=== PATIENT | male | born 1990 | race Caucasian/White ===

== ENCOUNTER 2016-11-25 11:21 | Emergency (ER) | payer BC, OTHER ==
[2016-11-25] MEDS ORDERED: Lidocaine 2% Viscous Solution 15 ML Cup PO ONE (11:43)
[2016-11-25] MEDS ORDERED: Benzocaine 20% Topical Spray UD MUCMEM ONE (11:43)
[2016-11-25] MEDS ORDERED: Amoxicillin 500 MG Cap PO SCH (11:45)
--- NOTE | 2016-11-25 11:48 | EDM.PDOC ---
ED HPI GENERAL MEDICAL PROBLEM - General Chief Complaint: General Stated Complaint: ABSCESS TOOTH Time Seen by Provider: 11/25/16 11:40 Source of Information: Reports: Patient History Limitations: Reports: No limitations - History of Present Illness INITIAL COMMENTS - FREE TEXT/NARRATIVE: History of present illness: [26-year-old male presents with acute onset left-sided jaw pain. Patient has multiple fillings, and some appearance of fractured tooth back in the 18 through 21 area patient does have some swelling and point tenderness to left lower jaw.] Review of systems: As per history of present illness and below otherwise all systems reviewed and negative. Past medical history: As per history of present illness and as reviewed below otherwise noncontributory. Surgical history: As per history of present illness and as reviewed below otherwise noncontributory. Social history: No reported history of drug or alcohol abuse. Family history: As per history of present illness and as reviewed below otherwise noncontributory. Physical exam: HEENT: Atraumatic, normocephalic, pupils reactive, negative for conjunctival pallor or scleral icterus, mucous membranes moist, throat clear, neck supple, nontender, trachea midline. Lungs: Clear to auscultation, breath sounds equal bilaterally, chest nontender. Heart: S1S2, regular, negative for clicks, rubs, or JVD. Abdomen: Soft, nondistended, nontender. Negative for masses or hepatosplenomegaly. Negative for costovertebral tenderness. Pelvis: Stable nontender. Genitourinary: Deferred. Rectal: Deferred. Extremities: Atraumatic, negative for cords or calf pain. Neurovascular unremarkable. Neuro: Awake, alert, oriented. Cranial nerves II through XII unremarkable. Cerebellum unremarkable. Motor and sensory unremarkable throughout. Exam nonfocal. Diagnostics: [] Therapeutics: [] Impression: [Dental caries, fractured teeth,] Plan: [Dental bolster, amoxicillin, referred of T3, followup with dentist] Definitive disposition and diagnosis as appropriate pending reevaluation and review of above. left lower Pain Score (Numeric/FACES): 8 - Related Data Allergies Allergy/AdvReac Type Severity Reaction Status Date / Time ibuprofen Allergy Wheezing Verified 11/25/16 11:35 Home Meds: Home Meds Amoxicillin [Amoxil] 875 mg PO Q12HR #14 tablet 11/25/16 [Rx] Past Medical History HEENT History: Reports: None Cardiovascular History: Reports: None Respiratory History: Reports: Asthma Gastrointestinal History: Reports: None Genitourinary History: Reports: None Musculoskeletal History: Reports: Fracture Other Musculoskeletal History: hx of fx right clavicle, right ankle, right middle finger Neurological History: Reports: None Psychiatric History: Reports: None Endocrine/Metabolic History: Reports: None Hematologic History: Reports: None Immunologic History: Reports: None Oncologic (Cancer) History: Reports: None Dermatologic History: Reports: None - Past Surgical History Head Surgeries/Procedures: Reports: None HEENT Surgical History: Reports: Other (see below) Other HEENT Surgeries/Procedures: polyps removed from nose Cardiovascular Surgical History: Reports: None Respiratory Surgical History: Reports: None GI Surgical History: Reports: None Male Surgical History: Reports: None Endocrine Surgical History: Reports: None Neurological Surgical History: Reports: None Musculoskeletal Surgical History: Reports: None Oncologic Surgical History: Reports: None Dermatological Surgical History: Reports: None Social & Family History - Family History Family Medical History: Noncontributory - Tobacco Use Smoking Status *Q: Never Smoker - Recreational Drug Use Recreational Drug Use: No ED ROS GENERAL - Review of Systems Review Of Systems: See Below (The history of present illness) ED EXAM, GENERAL - Physical Exam Exam: See Below (See history of present illness) Course - Vital Signs Last Recorded V/S: Last Vital Signs Temp 36.7 C 11/25/16 11:36 Pulse 67 11/25/16 11:36 Resp 18 11/25/16 11:36 BP 157/93 H 11/25/16 11:36 Pulse Ox 98 11/25/16 11:36 - Orders/Labs/Meds Orders: Active Orders 24 hr Category Date Time Status Amoxicillin [Amoxil] Med 11/25/16 11:45 Stop Req 1,000 mg PO Q8H Medication Orders Amoxicillin (Amoxil) 1,000 mg PO Q8H JESSICA Meds: Medications Generic Name Dose Route Start Last Admin Trade Name Freq PRN Reason Stop Dose Admin Amoxicillin 1,000 mg 11/25/16 11:45 Amoxil PO Q8H JESSICA Discontinued Medications Generic Name Dose Route Start Last Admin Trade Name Freq PRN Reason Stop Dose Admin Benzocaine 2 each 11/25/16 11:43 Hurricaine One 20% MUCMEM 11/25/16 11:44 ONETIME ONE Lidocaine HCl 15 ml 11/25/16 11:43 Xylocaine 2% Viscous PO 11/25/16 11:44 ONETIME ONE Departure - Departure Time of Disposition: 11:47 Disposition: Home, Self-Care 01 Condition: good Clinical Impression: Dental caries into pulp Fractured tooth Qualifiers: Encounter type: initial encounter Fracture type: closed Qualified Code(s): S02.5XXA - Fracture of tooth (traumatic), initial encounter for closed fracture Prescriptions: Amoxicillin [Amoxil] 875 mg PO Q12HR #14 tablet Forms: ED Department Discharge Additional Instructions: The following information is given to patients seen in the emergency department who are being discharged to home. This information is to outline your options for follow-up care. We provide all patients seen in our emergency department with a follow-up referral. The need for follow-up, as well as the timing and circumstances, are variable depending upon the specifics of your emergency department visit. If you don't have a primary care physician on staff, we will provide you with a referral. We always advise you to contact your personal physician following an emergency department visit to inform them of the circumstance of the visit and for follow-up with them and/or the need for any referrals to a consulting specialist. The emergency department will also refer you to a specialist when appropriate. This referral assures that you have the opportunity for follow-up care with a specialist. All of these measure are taken in an effort to provide you with optimal care, which includes your follow-up. Under all circumstances we always encourage you to contact your private physician who remains a resource for coordinating your care. When calling for follow-up care, please make the office aware that this follow-up is from your recent emergency room visit. If for any reason you are refused follow-up, please contact the [facility] Emergency Department at and asked to speak to the emergency department charge nurse. Followup with dentist as discussed Take medication as discussed and prescribed Return to ER as needed as discussed - My Orders Last 24 Hours: My Active Orders 11/25/16 11:45 Amoxicillin [Amoxil] 1,000 mg PO Q8H - Assessment/Plan Last 24 Hours: My Active Orders 11/25/16 11:45 Amoxicillin [Amoxil] 1,000 mg PO Q8H
[2016-11-25 12:40] VITALS: BP 160/101
== END 2016-11-25 12:37 | disposition home or self-care (01) ==
LOC: MW.ED 11:21
DX: S02.5XXA Fracture of tooth (traumatic), initial encounter for closed fracture (principal); K02.9 Dental caries, unspecified; Z98.890 Other specified postprocedural states; Z88.6 Allergy status to analgesic agent; X58.XXXA Exposure to other specified factors, initial encounter
CPT/HCPCS: 99282; A9270; 99283

== ENCOUNTER 2016-11-27 07:29 | Emergency (ER) | payer BC ==
[2016-11-27 07:47] VITALS: BP 132/95
--- NOTE | 2016-11-27 07:49 | EDM.PDOC ---
ED HPI ENT - General Chief Complaint: ENT Problem Stated Complaint: JAW PROBLEM Time Seen by Provider: 11/27/16 07:37 Source of Information: Reports: Patient History Limitations: Reports: No limitations - History of Present Illness INITIAL COMMENTS - FREE TEXT/NARRATIVE: HISTORY AND PHYSICAL: History of present illness: [18-year-old male now presents to the emergency department complaining of left jaw toothache patient was recently seen this toothache and put on amoxicillin. He is concerned about a swollen gum swelling. No drainage no fevers chills sweats or shaking chills. No headache or stiff neck. Local pain at the tooth site otherwise patient feels well]. Review of systems: As per history of present illness and below otherwise all systems reviewed and negative. Past medical history: As per history of present illness and as reviewed below otherwise noncontributory. Surgical history: As per history of present illness and as reviewed below otherwise noncontributory. Social history: No reported history of drug or alcohol abuse. Family history: As per history of present illness and as reviewed below otherwise noncontributory. Physical exam: Patient with cavity in the left mandible distribution. Mild common swelling with no fluctuance or. No drainage. No crepitus. Soft submentum. No tongue elevation. Supple neck no anterior cervical adenopathy. Normal oropharynx. She comfortable-appearing HEENT: Atraumatic, normocephalic, pupils reactive, negative for conjunctival pallor or scleral icterus, mucous membranes moist, throat clear, neck supple, nontender, trachea midline. Lungs: Clear to auscultation, breath sounds equal bilaterally, chest nontender. Heart: S1S2, regular, negative for clicks, rubs, or JVD. Abdomen: Soft, nondistended, nontender. Negative for masses or hepatosplenomegaly. Negative for costovertebral tenderness. Pelvis: Stable nontender. Genitourinary: Deferred. Rectal: Deferred. Extremities: Atraumatic, negative for cords or calf pain. Neurovascular unremarkable. Neuro: Awake, alert, oriented. Cranial nerves II through XII unremarkable. Cerebellum unremarkable. Motor and sensory unremarkable throughout. Exam nonfocal. Diagnostics: [] Therapeutics: [] Impression: [] Plan: [Patient with cavity and dental infection. Currently compliant with amoxicillin treatment. Patient aware to take NSAIDs however he states he is allergic to ibuprofen. No drainable abscess today. Patient is well-appearing but clearly has a contributory anxiety component to his presentation. Discussed with patient to take Naprosyn as needed finish antibiotics as prescribed and follow up with dentist as soon as possible for reevaluation and definitive dental care. No further workup or treatment indicated patient agrees with outpatient followup and strict return precautions given] Definitive disposition and diagnosis as appropriate pending reevaluation and review of above. - Related Data Allergies/ADRs: Allergies Allergy/AdvReac Type Severity Reaction Status Date / Time ibuprofen Allergy Wheezing Verified 11/25/16 11:35 Home Meds: Home Meds Amoxicillin [Amoxil] 875 mg PO Q12HR #14 tablet 11/25/16 [Rx] Acetaminophen with Codeine [Tylenol with Codeine #3 Tablet] 1 each PO TID PRN [History] Past Medical History HEENT History: Reports: None Cardiovascular History: Reports: None Respiratory History: Reports: Asthma Gastrointestinal History: Reports: None Genitourinary History: Reports: None Musculoskeletal History: Reports: Fracture Other Musculoskeletal History: hx of fx right clavicle, right ankle, right middle finger Neurological History: Reports: None Psychiatric History: Reports: None Endocrine/Metabolic History: Reports: None Hematologic History: Reports: None Immunologic History: Reports: None Oncologic (Cancer) History: Reports: None Dermatologic History: Reports: None - Past Surgical History Head Surgeries/Procedures: Reports: None HEENT Surgical History: Reports: Other (see below) Other HEENT Surgeries/Procedures: polyps removed from nose Cardiovascular Surgical History: Reports: None Respiratory Surgical History: Reports: None GI Surgical History: Reports: None Male Surgical History: Reports: None Endocrine Surgical History: Reports: None Neurological Surgical History: Reports: None Musculoskeletal Surgical History: Reports: None Oncologic Surgical History: Reports: None Dermatological Surgical History: Reports: None Social & Family History - Family History Family Medical History: Noncontributory - Tobacco Use Smoking Status *Q: Never Smoker - Recreational Drug Use Recreational Drug Use: No ED ROS ENT - Review of Systems Review Of Systems: See Below (Per history of present illness) ED EXAM, ENT - Physical Exam Exam: See Below (Per history of present illness) Course - Vital Signs Last Recorded V/S: Last Vital Signs Temp 36.2 C 11/27/16 07:44 Pulse 100 11/27/16 07:44 Resp 16 11/27/16 07:44 BP 132/95 H 11/27/16 07:44 Pulse Ox 97 11/27/16 07:44 - Orders/Labs/Meds Meds: Medications Discontinued Medications Generic Name Dose Route Start Last Admin Trade Name Gen PRN Reason Stop Dose Admin Naproxen 500 mg 11/27/16 08:06 11/27/16 08:12 Naprosyn PO 11/27/16 08:07 500 mg ONETIME ONE Administration Departure - Departure Time of Disposition: 08:03 Disposition: Home, Self-Care 01 Condition: good Clinical Impression: Toothache, Dental infection, Dental caries Instructions: Dental Caries, [id number] Referrals: PCP,None [Primary Care Provider] - Forms: ED Department Discharge Additional Instructions: Your dental infection does not have a drainable abscess at this time. Finish antibiotics as prescribed. Take Naprosyn 500 mg every 12 hours as needed for pain and then use your other pain medicine as prescribed if necessary. Return for worsening swelling. Followup with your dentist tomorrow.
[2016-11-27] MEDS ORDERED: Naproxen 500 MG Tab PO ONE (08:06)
== END 2016-11-27 08:17 | disposition home or self-care (01) ==
LOC: MW.ED 07:29
DX: K04.7 Periapical abscess without sinus (principal); K02.9 Dental caries, unspecified; J45.909 Unspecified asthma, uncomplicated; Z88.6 Allergy status to analgesic agent; Z79.899 Other long term (current) drug therapy
CPT/HCPCS: 99282; A9270

== ENCOUNTER 2016-11-27 09:26 | Emergency (ER) | payer BC ==
[2016-11-27 09:31] VITALS: BP 140/101
[2016-11-27] MEDS ORDERED: Albuterol/Ipratropium 3.0-0.5 MG/3 ML Neb Soln NEB ONE (09:34)
--- NOTE | 2016-11-27 11:28 | EDM.PDOC ---
[id number] Information: Reports: Patient History Limitations: Reports: No Limitations - History of Present Illness INITIAL COMMENTS - FREE TEXT/NARRATIVE: See attached Dyspnea Pain Score (Numeric/FACES): 4 - Related Data Allergies Allergy/AdvReac Type Severity Reaction Status Date / Time ibuprofen Allergy Wheezing Verified 11/25/16 11:35 Home Meds: Home Meds Amoxicillin [Amoxil] 875 mg PO Q12HR #14 tablet 11/25/16 [Rx] Acetaminophen with Codeine [Tylenol with Codeine #3 Tablet] 1 each PO TID PRN [History] Past Medical History HEENT History: Reports: None Cardiovascular History: Reports: None Respiratory History: Reports: Asthma Gastrointestinal History: Reports: None Genitourinary History: Reports: None Musculoskeletal History: Reports: Fracture Other Musculoskeletal History: hx of fx right clavicle, right ankle, right middle finger Neurological History: Reports: None Psychiatric History: Reports: None Endocrine/Metabolic History: Reports: None Hematologic History: Reports: None Immunologic History: Reports: None Oncologic (Cancer) History: Reports: None Dermatologic History: Reports: None - Infectious Disease History Infectious Disease History: Reports: None - Past Surgical History Head Surgeries/Procedures: Reports: None HEENT Surgical History: Reports: Other (See Below) Other HEENT Surgeries/Procedures: polyps removed from nose Cardiovascular Surgical History: Reports: None Respiratory Surgical History: Reports: None GI Surgical History: Reports: None Male Surgical History: Reports: None Endocrine Surgical History: Reports: None Neurological Surgical History: Reports: None Musculoskeletal Surgical History: Reports: None Oncologic Surgical History: Reports: None Dermatological Surgical History: Reports: None Social & Family History - Family History Family Medical History: Noncontributory - Tobacco Use Smoking Status *Q: Never Smoker Second Hand Smoke Exposure: No - Caffeine Use Caffeine Use: Reports: Coffee, Soda - Recreational Drug Use Recreational Drug Use: No ED ROS GENERAL - Review of Systems Review Of Systems: See Below (Per history of present illness) ED EXAM, GENERAL - Physical Exam Exam: See Below (Per history of present illness) Course - Vital Signs Last Recorded V/S: Last Vital Signs Temp 36.6 C 11/27/16 09:28 Pulse 108 H 11/27/16 11:19 Resp 16 11/27/16 09:28 BP 140/101 H 11/27/16 09:28 Pulse Ox 96 11/27/16 11:19 - Orders/Labs/Meds Meds: Medications Discontinued Medications Generic Name Dose Route Start Last Admin Trade Name Gen PRN Reason Stop Dose Admin Albuterol/Ipratropium 3 ml 11/27/16 09:34 11/27/16 09:38 Duoneb 3.0-0.5 Mg/3 Ml NEB 11/27/16 09:35 3 ml ONETIME ONE Administration Departure - Departure Time of Disposition: 11:15 Disposition: Home, Self-Care 01 Clinical Impression: Anxiety, Dental infection, Toothache - Discharge Information Instructions: Shortness of Breath, [id number] Referrals: PCP,None [Primary Care Provider] - Forms: ED Department Discharge Additional Instructions: Finish antibiotics as previously prescribed for your toothache. Take Tylenol as needed for pain. It does not appear that you've had an allergic reaction today but if you feel like you have side effects with Naprosyn it is probably best to avoid that medicine. All up with your DrBrian tomorrow and followup with your dentist as soon as possible for definitive dental care. Return for worsening signs of infection ED HISTORY OF PRESENT ILLNESS - General Chief Complaint: Respiratory Problem Stated Complaint: CAN'T BREATH Time Seen by Provider: 11/27/16 09:40 Source of Information: Reports: Patient History Limitations: Reports: No Limitations - History of Present Illness INITIAL COMMENTS - FREE TEXT/NARRATIVE: HISTORY AND PHYSICAL: History of present illness: [26-year-old male complaining of toothache. He is anxious. Recently seen by for another problem the patient continues to be worried about his condition Review of systems: As per history of present illness and below otherwise all systems reviewed and negative. Past medical history: As per history of present illness and as reviewed below otherwise noncontributory. Surgical history: As per history of present illness and as reviewed below otherwise noncontributory. Social history: No reported history of drug or alcohol abuse. Family history: As per history of present illness and as reviewed below otherwise noncontributory. Physical exam: Mild anxiety no acute distress HEENT: Atraumatic, normocephalic, pupils reactive, negative for conjunctival pallor or scleral icterus, mucous membranes moist, throat clear, neck supple, nontender, trachea midline. Lungs: Clear to auscultation, breath sounds equal bilaterally, chest nontender. Heart: S1S2, regular, negative for clicks, rubs, or JVD. Abdomen: Soft, nondistended, nontender. Negative for masses or hepatosplenomegaly. Negative for costovertebral tenderness. Pelvis: Stable nontender. Genitourinary: Deferred. Rectal: Deferred. Extremities: Atraumatic, negative for cords or calf pain. Neurovascular unremarkable. Neuro: Awake, alert, oriented. Cranial nerves grossly unremarkable. Cerebellum unremarkable. Motor and sensory unremarkable throughout. Exam nonfocal. Diagnostics: [] Therapeutics: [] Impression: [] Plan: [Signs and symptoms consistent with toothache complicated by anxiety. Patient with no intraoral mass. No acute intervention indicated. Patient aware due to financial box as prescribed and follow-up with PCP as directed as well as dentist. NSAIDs and Tylenol as needed he agrees with outpatient follow-up and strict return precautions given] Definitive disposition and diagnosis as appropriate pending reevaluation and review of above. - Related Data Allergies/ADRs: Allergies Allergy/AdvReac Type Severity Reaction Status Date / Time ibuprofen Allergy Wheezing Verified 11/25/16 11:35 Home Meds: Home Meds Amoxicillin [Amoxil] 875 mg PO Q12HR #14 tablet 11/25/16 [Rx] Acetaminophen with Codeine [Tylenol with Codeine #3 Tablet] 1 each PO TID PRN [History] Departure - Departure Time of Disposition: 11:15 Disposition: Home, Self-Care 01 Condition: Good Clinical Impression: Anxiety, Dental infection, Toothache Instructions: Shortness of Breath, [id number] Referrals: PCP,None [Primary Care Provider] - Forms: ED Department Discharge Additional Instructions: Finish antibiotics as previously prescribed for your toothache. Take Tylenol as needed for pain. It does not appear that you've had an allergic reaction today but if you feel like you have side effects with Naprosyn it is probably best to avoid that medicine. All up with your tomorrow and followup with your dentist as soon as possible for definitive dental care. Return for worsening signs of infection
== END 2016-11-27 11:44 | disposition home or self-care (01) ==
LOC: MW.ED 09:26
DX: F41.9 Anxiety disorder, unspecified (principal); K04.7 Periapical abscess without sinus; J45.909 Unspecified asthma, uncomplicated; Z88.6 Allergy status to analgesic agent; K02.9 Dental caries, unspecified; Z79.899 Other long term (current) drug therapy
CPT/HCPCS: 94664; 99282; 99283; A9270